=== PATIENT | male | born 2005 | race Hispanic/Latino ===

== ENCOUNTER 2023-06-08 19:20 | Emergency (ER) | payer OTHER | END 2023-06-08 19:42 | disposition home or self-care (01) | LOC: NAV ERS 19:20 | DX: B34.9 Viral infection, unspecified (principal); Z20.822 Contact with and (suspected) exposure to COVID-19 | CPT/HCPCS: 87635; 99284 ==

== ENCOUNTER 2024-04-17 11:58 | Emergency (ER) | payer OTHER, SELFPAY ==
[2024-04-17] MEDS ORDERED: Ondansetron ODT 4 MG TAB ONE (12:45)
[2024-04-17] MEDS ORDERED: Loperamide HCl 2 MG CAP ONE (12:48)
== END 2024-04-17 13:50 | disposition home or self-care (01) ==
LOC: NAV ERS 11:58
DX: K52.9 Noninfective gastroenteritis and colitis, unspecified (principal); J45.909 Unspecified asthma, uncomplicated; Z79.899 Other long term (current) drug therapy
CPT/HCPCS: 99283; Q0162